=== PATIENT | female | born 2000 | race Caucasian/White ===

== ENCOUNTER 2023-09-14 20:20 | Emergency (ER) | payer BC, SELFPAY ==
--- NOTE | ~2023-09-14 | CT_ITS ---
CT of the Abdomen and Pelvis: Indication: Abdominal pain Technique: 2.5 mm axial scans were obtained through the abdomen and pelvis following intravenous adm inistration of 100 cc of Omnipaque 350. Dose reduction technique was used on this scan by utilizing a utomated exposure control and iterative reconstruction technique. The dose-length product (DLP) was 2 35.68 mGy-cm. Findings: Scans through the lung bases are unremarkable. The liver, spleen, pancreas, gallbladder, adrenals and kidneys are within normal limits. No evidence of aortic aneurysm. No lymphadenopathy. No bowel obstruction or bowel wall thickening. There is no evidence to suggest acute appendicitis. Images through the pelvis were performed. Urinary bladder unremarkable. No pelvic mass seen. No ascit es. Impression: No significant abnormalities seen. Reviewed, dictated and finalized at location . Impression: No significant abnormalities seen.
[2023-09-14 20:21] VITALS: BP 124/72; PULSE 86; RESP 16; TEMP 36.7; O2SAT 100
[2023-09-14 21:11] LABS: Basophils Percent Auto 0.3 % (0.2-1.2); Eosinophils Absolute Auto 0.2 K/mm3 (0-0.3); Eosinophils Percent Auto 3.1 % (0-4.4); Hematocrit 38.8 % (37.0-47.0); Hemoglobin 12.8 g/dL (12.0-15.0); Immature Granulocyte Absolute 0.02 K/mm3 (0.00-0.031); Immature Granulocyte Percent A 0.3 % (0-0.5); Lymphocytes Absolute Auto 1.36 K/mm3 (0.9-3.2); Lymphocytes Percent Auto 17.7 % (18.3-44.2); Mean Corpuscular Hemoglobin 29.2 pg (26-34); Mean Corpuscular Volume 88.6 fl (80-100); Mean Platelet Volume 9.9 fl (7.4-10.4); Monocytes Absolute Auto 0.6 K/mm3 (0.1-0.6); Monocytes Percent Auto 7.6 % (2.6-8.5); Neutrophils Absolute Auto 5.5 K/mm3 (1.3-6.7); Platelet Count Result 235 k/mm3 (150-375); Red Blood Count 4.38 M/mm3 (4.2-5.4); Red Cell Distribution Width 13.2 % (11.5-14.5); White Blood Count 7.7 K/mm3 (4.5-10.0)
[2023-09-14 21:21] LABS: Alanine Aminotransferase 15 U/L (6-35); Albumin Level 4.7 g/dL (3.5-5.1); Alkaline Phosphatase 48 U/L (38-126); Anion Gap 10 mmol/L (4-12); Aspartate Amino Transferase 24 U/L (14-36); Bilirubin,Total 0.4 mg/dL (0.2-1.3); Blood Urea Nitrogen 7 mg/dL (7-17); Calcium 9.6 mg/dL (8.4-10.2); Carbon Dioxide 20 mmol/L (22-30); Chloride 107 mmol/L (98-107); Estimated CRCL calculation 117 ml/min; Estimated Glomerular Filt Rate > 60; Glucose 113 mg/dL (65-110); Lipase 35 U/L (23-300); Potassium 3.4 mmol/L (3.4-5.0); Sodium 137 mmol/L (137-145)
[2023-09-14 22:05] VITALS: PULSE 76; RESP 16; O2SAT 99
[2023-09-14 22:11] LABS: Add Urine Microscopic? YES; Appearance Urine Cloudy (Clear); Bacteria Urine None Seen /hpf; Bilirubin Urine Negative (Negative); Blood Urine 2+ (Negative); Color Urine Yellow (Yellow); Glucose Urine UA Negative (Negative); Ketones Urine Negative (Negative); Leukocyte Esterase Ur Negative LEU/UL (Negative); Nitrate Urine Negative (Negative); Non Pathogenic Casts 0-2; Protein Urine Trace mg/dL (Negative); Specific Grav Ur 1.022 (1.001-1.035); Squamous Epithelial Cell Urine Occasional /hpf (Few); WBC Urine 0-5 /hpf (0-3)
--- NOTE | 2023-09-14 23:27 | PC.NURSE ---
care and report given to LETICIA Suh. all questions answered.
[2023-09-14 23:49] VITALS: BP 123/82; PULSE 80; RESP 18; O2SAT 99
[2023-09-15 01:43] VITALS: BP 123/83; PULSE 88; RESP 20; O2SAT 100
--- NOTE | 2023-09-15 01:43 | PC.NURSE ---
Pt to CT scan via w/c at this time.
--- NOTE | 2023-09-15 02:40 | ED.ABDPAIN ---
HPI - Abdominal Pain General Chief Complaint: Abdominal Pain Stated Complaint: abd pain, vomitting Time Seen by Provider: 09/15/23 01:24 History of Present Illness HPI narrative: Patient is a 23-year-old female who presents to the emergency department this evening complaining of left lower quadrant abdominal pain, nausea and vomiting. Patient states that the pain started around 7:00 p.m. while she was sitting in the couch and has been progressively getting worse. Patient states that she feels the pain more on the left side but also generally across her bilateral lower quadrants. Patient denies any dysuria or hematuria, denies any history of kidney stones, and admits that she is currently on her menstrual cycle. Patient states that she has vomited more times than she can count and denies any sick contacts at home, denies eating out today or any changes in her diet. Patient denies any fevers or chills at home. She denies any additional symptoms at this time. Related Data Allergies Allergy/AdvReac Type Severity Reaction Status Date / Time No Known Allergies Allergy Verified 09/15/23 02:44 Review of Systems Review of Systems: All systems are reviewed and are negative unless stated otherwise in the HPI. Exam Narrative: General: Alert, awake, afebrile, in no acute distress. Cardiovascular: Regular rate and rhythm, no murmurs, rubs or gallops, no peripheral edema. Respiratory: Clear to auscultation bilaterally, no tachypnea, no wheezing, no rhonchi, no rubs, no respiratory distress. Abdomen: Soft, nontender to palpation over all 4 quadrants, nondistended, no rebound, no guarding, no peritoneal signs. Musculoskeletal: No joint swelling or deformity, normal muscle tone. Skin: No rashes or petechia, no signs of infection. Psychiatric: Alert and oriented, normal behavior and judgment for situation. Neurological: Alert and oriented to person, place, and time. Follows all commands. No focal deficits, speech is clear and fluent. Course Vital Signs Vital signs: Vital Signs Temperature 98.1 F 09/14/23 20:21 Pulse Rate 86 09/14/23 20:21 Respiratory Rate 16 09/14/23 20:21 Blood Pressure 124/72 09/14/23 20:21 Pulse Oximetry 100 09/14/23 20:21 Oxygen Delivery Room Air 09/14/23 20:21 Temperature 98.1 F 09/14/23 20:21 Pulse Rate 88 09/15/23 01:43 Respiratory Rate 20 09/15/23 01:43 Blood Pressure 123/83 09/15/23 01:43 Pulse Oximetry 100 09/15/23 01:43 Oxygen Delivery Room Air 09/14/23 20:21 MDM - Abdominal Pain MDM Narrative Medical decision making narrative: The patient was evaluated by myself in the emergency department. History is obtained from patient who is an independent historian and physical exam was performed. External medical records were reviewed at this time. IV was established and pertinent tests were ordered. Patient currently states that her pain is a 3 and denies any nausea. Patient has not had any vomiting episodes in the emergency department. Laboratory results obtained revealing no acute process. Urinalysis revealed 2+ blood otherwise unremarkable. Imaging studies obtained included CT abdomen and pelvis with IV contrast which was independently interpreted by me revealing no acute process, which is pending final radiology interpretation. Differential diagnosis considerations include gastroenteritis, nephrolithiasis and appendicitis. Comorbidities impacting this visit include none. I have evaluated and discussed social determinants of health with the patient that could potentially impact subsequent diagnosis and treatment plans. On repeat assessment of the patient, reevaluation revealed that the patient is doing well and is in no acute distress. Patient symptoms have improved since she arrived to our emergency department. Repeat vital signs were all reviewed and noted to be stable. Differential diagnosis and treatment plan were discussed with the patient at be
[2023-09-15 02:55] VITALS: BP 124/79; PULSE 86; RESP 17; O2SAT 100
== END 2023-09-15 02:56 | disposition home or self-care (01) ==
PROVIDERS: Emergency Provider Emergency Medicine
DX: R11.2 Nausea with vomiting, unspecified (principal); R10.84 Generalized abdominal pain
CPT/HCPCS: 36415; 74177; 80053; 81001; 81025; 83690; 85025; 99284; Q9967